=== PATIENT | female | born 1945 | race Caucasian/White ===

== ENCOUNTER 2016-12-16 07:15 | Outpatient (CLI) | payer MEDICARE, OTHER ==
[2016-12-16 08:24] LABS: INR-International Normal Ratio 1.5; Prothrombin Time 18.7 SEC (12.0-14.7)
== END 2016-12-16 07:16 | disposition home or self-care (01) ==
LOC: NAV LABSP 07:15
PROVIDERS: ATTEND Family Medicine
DX: I82.421 Acute embolism and thrombosis of right iliac vein (principal)
CPT/HCPCS: 36415; 85610

== ENCOUNTER 2016-12-18 10:22 | Outpatient (CLI) | payer MEDICARE, OTHER ==
[2016-12-18 15:37] LABS: INR-International Normal Ratio 1.5; Prothrombin Time 18.3 SEC (12.0-14.7)
== END 2016-12-18 10:23 | disposition home or self-care (01) ==
LOC: NAV LABSP 10:22
PROVIDERS: ATTEND Family Medicine
DX: I82.421 Acute embolism and thrombosis of right iliac vein (principal)
CPT/HCPCS: 36415; 85610

== ENCOUNTER 2016-12-27 10:28 | Outpatient (CLI) | payer MEDICARE, OTHER ==
[2016-12-27 12:05] LABS: INR-International Normal Ratio 1.1; Prothrombin Time 14.8 SEC (12.0-14.7)
== END 2016-12-27 10:29 | disposition home or self-care (01) ==
LOC: NAV LABSP 10:28
PROVIDERS: ATTEND Family Medicine
DX: I82.421 Acute embolism and thrombosis of right iliac vein (principal)
CPT/HCPCS: 36415; 85610

== ENCOUNTER 2017-01-05 07:49 | Outpatient (CLI) | payer MEDICARE, OTHER ==
[2017-01-05 11:27] LABS: INR-International Normal Ratio 1.2
== END 2017-01-05 07:50 | disposition home or self-care (01) ==
LOC: NAV LABSP 07:49
PROVIDERS: ATTEND Family Medicine
DX: Z51.81 Encounter for therapeutic drug level monitoring (principal); Z79.01 Long term (current) use of anticoagulants
CPT/HCPCS: 36415; 85610

== ENCOUNTER 2017-01-13 07:20 | Outpatient (CLI) | payer MEDICARE, MEDICAID ==
[2017-01-13 08:44] LABS: Prothrombin Time 13.7 SEC (12.0-14.7)
== END 2017-01-13 07:21 | disposition home or self-care (01) ==
LOC: NAV LABSP 07:20
PROVIDERS: ATTEND Family Medicine
DX: I74.9 Embolism and thrombosis of unspecified artery (principal)
CPT/HCPCS: 36415; 85610

== ENCOUNTER 2017-01-31 17:00 | Outpatient (CLI) | payer MEDICARE ==
[2017-01-31 19:52] LABS: INR-International Normal Ratio 1.2; Prothrombin Time 15.2 SEC (12.0-14.7)
== END 2017-01-31 17:01 | disposition home or self-care (01) ==
LOC: NAV LABSP 17:00
PROVIDERS: ATTEND Family Medicine
DX: I82.421 Acute embolism and thrombosis of right iliac vein (principal)
CPT/HCPCS: 36415; 85610

== ENCOUNTER 2017-02-01 07:44 | Outpatient (CLI) | payer MEDICARE ==
[2017-02-01 09:27] LABS: INR-International Normal Ratio 1.4; Prothrombin Time 17.1 SEC (12.0-14.7)
== END 2017-02-01 07:45 | disposition home or self-care (01) ==
LOC: NAV LABSP 07:44
PROVIDERS: ATTEND Family Medicine
DX: I82.421 Acute embolism and thrombosis of right iliac vein (principal)
CPT/HCPCS: 36415; 85610

== ENCOUNTER 2017-02-02 07:22 | Outpatient (CLI) | payer MEDICARE ==
[2017-02-02 08:33] LABS: INR-International Normal Ratio 1.7; Prothrombin Time 20.1 SEC (12.0-14.7)
== END 2017-02-02 07:23 | disposition home or self-care (01) ==
LOC: NAV LABSP 07:22
PROVIDERS: ATTEND Family Medicine
DX: I82.421 Acute embolism and thrombosis of right iliac vein (principal)
CPT/HCPCS: 36415; 85610

== ENCOUNTER 2017-02-08 09:37 | Outpatient (CLI) | payer MEDICARE, OTHER ==
[2017-02-08 13:45] LABS: INR-International Normal Ratio 1.4; Prothrombin Time 17.3 SEC (12.0-14.7)
== END 2017-02-08 09:38 | disposition home or self-care (01) ==
LOC: NAV LABSP 09:37
PROVIDERS: ATTEND Family Medicine
DX: Z51.81 Encounter for therapeutic drug level monitoring (principal); Z79.01 Long term (current) use of anticoagulants
CPT/HCPCS: 36415; 85610

== ENCOUNTER 2017-02-25 17:41 | Outpatient (CLI) | payer MEDICARE, OTHER ==
[2017-02-25 20:26] LABS: Prothrombin Time 23.6 SEC (12.0-14.7)
== END 2017-02-25 17:42 | disposition home or self-care (01) ==
LOC: NAV LABSP 17:41
PROVIDERS: ATTEND Family Medicine
DX: I82.421 Acute embolism and thrombosis of right iliac vein (principal)
CPT/HCPCS: 36415; 85610

== ENCOUNTER 2017-02-28 09:28 | Outpatient (CLI) | payer MEDICARE, OTHER ==
[2017-02-28 09:47] LABS: INR-International Normal Ratio 1.6; Prothrombin Time 19.5 SEC (12.0-14.7)
== END 2017-02-28 09:29 | disposition home or self-care (01) ==
LOC: NAV LABSP 09:28
PROVIDERS: ATTEND Family Medicine
DX: Z51.81 Encounter for therapeutic drug level monitoring (principal); I82.421 Acute embolism and thrombosis of right iliac vein; Z79.01 Long term (current) use of anticoagulants
CPT/HCPCS: 36415; 85610

== ENCOUNTER 2017-03-11 07:16 | Outpatient (CLI) | payer MEDICARE ==
[2017-03-11 07:58] LABS: INR-International Normal Ratio 2.6
== END 2017-03-11 07:17 | disposition home or self-care (01) ==
LOC: NAV LABSP 07:16
PROVIDERS: ATTEND Family Medicine
DX: I24.9 Acute ischemic heart disease, unspecified (principal)
CPT/HCPCS: 36415; 85610

== ENCOUNTER 2017-03-14 08:27 | Outpatient (CLI) | payer MEDICARE ==
[2017-03-14 09:02] LABS: INR-International Normal Ratio 2.5
== END 2017-03-14 08:28 | disposition home or self-care (01) ==
LOC: NAV LABSP 08:27
PROVIDERS: ATTEND Family Medicine
DX: I82.421 Acute embolism and thrombosis of right iliac vein (principal)
CPT/HCPCS: 36415; 85610

== ENCOUNTER 2017-03-17 07:20 | Outpatient (CLI) | payer MEDICARE ==
[2017-03-17 08:17] LABS: INR-International Normal Ratio 2.3; Prothrombin Time 26.3 SEC (12.0-14.7)
== END 2017-03-17 07:21 | disposition home or self-care (01) ==
LOC: NAV LABSP 07:20
PROVIDERS: ATTEND Nurse Practitioner Adult Health
DX: I82.421 Acute embolism and thrombosis of right iliac vein (principal); I11.9 Hypertensive heart disease without heart failure
CPT/HCPCS: 36415; 85610